=== PATIENT | female | born 1995 | race African-American/Black ===

== ENCOUNTER 2017-06-18 16:16 | Emergency (ER) | payer OTHER ==
[2017-06-18] MEDS ORDERED: METOCLOPRAMIDE HCL INJ/PF 10 MG/2 ML SDV IV ONE (16:36)
[2017-06-18] MEDS ORDERED: NORMAL SALINE 1000 ML 1,000 ML IV ONE ×2 (16:36→16:53)
--- NOTE | 2017-06-18 16:39 | ER Document Report ---
ED Medical Screen (RME) - General Chief Complaint: Nausea/Vomiting/Diarrhea Stated Complaint: VOMITING, STOMACH/BACK PAIN Time Seen by Provider: 06/18/17 16:34 Notes: 22-year-old female patient who is almost 13 weeks . Ate at [employer] yesterday. Later developed nausea vomiting diarrhea. No fever. I have greeted and performed a rapid initial assessment of this patient. A comprehensive ED assessment and evaluation of the patient, analysis of test results and completion of the medical decision making process will be conducted by additional ED providers. - Related Data Allergies/Adverse Reactions: No Known Allergies Allergy (Unverified 06/18/17 16:19) Physical Exam - Vital signs Vitals: Temp Pulse Resp BP Pulse Ox 97.7 F 113 H 18 97/57 L 96 06/18/17 16:26 06/18/17 16:26 06/18/17 16:26 06/18/17 16:26 06/18/17 16:26 Course - Vital Signs Vital signs: Temp Pulse Resp BP Pulse Ox 97.7 F 113 H 18 97/57 L 96 06/18/17 16:26 06/18/17 16:26 06/18/17 16:26 06/18/17 16:26 06/18/17 16:26
--- NOTE | 2017-06-18 16:58 | ER Document Report ---
ED GI/ - General Chief Complaint: Nausea/Vomiting/Diarrhea Stated Complaint: VOMITING, STOMACH/BACK PAIN Time Seen by Provider: 06/18/17 16:34 Mode of Arrival: Ambulatory Information source: Patient Notes: 22-year-old female that is 13 weeks had an episode of diarrhea after eating a [employer] yesterday and then had vomiting 5-6 times. She has been trying to put things in her mouth but it causes her to be nauseated and vomited since yesterday afternoon. When she has a forceful vomiting she urinates in her underwear. She feels like she is weak with some dizziness and headache. No vaginal bleeding or abdominal pain. - Related Data Allergies/Adverse Reactions: No Known Allergies Allergy (Unverified 06/18/17 16:19) Past Medical History - General Information source: Patient - Social History Smoking Status: Never Smoker Chew tobacco use (# tins/day): No Frequency of alcohol use: None Drug Abuse: None Lives with: Spouse/Significant other Family History: Reviewed & Not Pertinent Patient has suicidal ideation: No Patient has homicidal ideation: No - Medical History Notes: G1 Pulmonary Medical History: Reports: Hx Asthma Renal/ Medical History: Denies: Hx Peritoneal Dialysis Surgical Hx: Negative Review of Systems - Review of Systems Constitutional: No symptoms reported EENT: No symptoms reported Cardiovascular: No symptoms reported Respiratory: No symptoms reported Gastrointestinal: See HPI Genitourinary: No symptoms reported Female Genitourinary: No symptoms reported Musculoskeletal: No symptoms reported Skin: No symptoms reported Hematologic/Lymphatic: No symptoms reported Neurological/Psychological: No symptoms reported Physical Exam - Vital signs Vitals: Temp Pulse Resp BP Pulse Ox 97.7 F 113 H 18 97/57 L 96 06/18/17 16:26 06/18/17 16:26 06/18/17 16:26 06/18/17 16:26 06/18/17 16:26 Interpretation: Normal - General General appearance: Appears well, Alert In distress: None - HEENT Head: Normocephalic, Atraumatic Eyes: Normal Conjunctiva: Normal Pupils: PERRL Mucous membranes: Dry Pharynx: Normal Neck: Supple - Respiratory Respiratory status: No respiratory distress Chest status: Nontender Breath sounds: Normal Chest palpation: Normal - Cardiovascular Rhythm: Regular Heart sounds: Normal auscultation Murmur: No - Abdominal Inspection: Normal Distension: No distension Bowel sounds: Normal Tenderness: Nontender. No: Tender Organomegaly: No organomegaly - Back Back: Normal, Tender - lumbar back muscles - Extremities General upper extremity: Normal inspection, Nontender, Normal color, Normal ROM , Normal temperature General lower extremity: Normal inspection, Nontender, Normal color, Normal ROM , Normal temperature, Normal weight bearing. No: Leslie's sign - Neurological Neuro grossly intact: Yes Cognition: Normal Orientation: AAOx4 Torrey Coma Scale Eye Opening: Spontaneous Lauro Coma Scale Verbal: Oriented Lauro Coma Scale Motor: Obeys Commands Torrey Coma Scale Total: 15 Speech: Normal Motor strength normal: LUE, RUE, LLE, RLE Sensory: Normal - Psychological Associated symptoms: Normal affect, Normal mood - Skin Skin Temperature: Warm Skin Moisture: Dry Skin Color: Normal Skin irregularity: negative: Rash Course - Re-evaluation Re-evalutation: 06/18/17 18:02 heart tones are 145 and after 500 mL of normal saline she feels better already and wants to try sabine erica and marion crackers. She did have another episode of diarrhea while in the emergency department but no vomiting. 06/18/17 19:16 She ate some not so she feels a lot better she is drinking sabine erica I will send her home with Macrobid because the urine shows 2+ bacteria I did add a urine culture. - Vital Signs Vital signs: Temp Pulse Resp BP Pulse Ox 97.7 F 113 H 18 97/57 L 96 06/18/17 16:26 06/18/17 16:26 06/18/17 16:26 06/18/17 16:26 06/18/17 16:26 - Laboratory Result Diagrams: 06/18/17 16:58 06/18/17 16:58 Laboratory results interpreted by me: 06/18/17 06/18/17 06/18/17 16:58 16:58 17:20 Seg Neutrophils % 84.4 H Lymphocytes % 8.2 L Sodium 135.8 L BUN 6 L Creatinine 0.43 L Urine Ketones 80 H Urine Urobilinogen 2.0 H Discharge - Discharge Clinical Impression: 13 weeks gestation of , Vomiting and diarrhea Urinary tract infection Qualifiers: Urinary tract infection type: site unspecified Hematuria presence: without hematuria Qualified Code(s): N39.0 - Urinary tract infection, site not specified Condition: Good Disposition: ADMITTED INPATIENT Instructions: Diarrhea, Nonspecific ([facility]), Intravenous (IV) Fluids ([facility]), Vomiting ([facility]), Reglan ([facility]) Additional Instructions: Plenty of fluids Advance diet as tolerated Reglan can be taken 4 times a day for nausea Continue the antibiotic for the urinary tract infection Urine culture is pending Return to the emergency room for worsening of the symptoms See the [facility] this week for follow-up at [facility] Prescriptions: Nitrofurantoin/Nitrofuran Mac [Macrobid 100 mg Capsule] 100 mg PO BID #14 capsule
[2017-06-18 17:26] LABS: ABSOLUTE EOSINOPHILS # (AUTO) 0.2 10^3/uL (0.0-0.6); ABSOLUTE LYMPHOCYTES (AUTO) 0.8 10^3/uL (0.5-4.7); ABSOLUTE MONOCYTES (AUTO) 0.5 10^3/uL (0.1-1.4); ABSOLUTE NEUT (AUTO) 7.9 10^3/uL (1.7-8.2); BASOPHILS % (AUTO) 0.2 % (0-2); EOSINOPHILS % (AUTO) 2.1 % (0-6); HEMATOCRIT 39.3 % (36.0-47.0); HEMOGLOBIN 13.5 g/dL (12.0-15.5); LYMPHOCYTES % (AUTO) 8.2 % (13-45); MEAN CORPUSCULAR HEMOGLOBIN 29.6 pg (27.0-33.4); MEAN CORPUSCULAR HGB CONC 34.4 g/dL (32.0-36.0); MEAN CORPUSCULAR VOLUME 86 fl (80-97); MONOCYTES % (AUTO) 5.1 % (3-13); PLATELET COUNT 258 10^3/uL (150-450); RED BLOOD COUNT 4.57 10^6/uL (3.72-5.28); SEGMENTED NEUTROPHILS % (AUTO) 84.4 % (42-78); TOTAL CELLS COUNTED % (AUTO) 100 %; WHITE BLOOD COUNT 9.4 10^3/uL (4.0-10.5)
[2017-06-18 17:43] LABS: APPEARANCE,URINE SLIGHTLY-CLOUDY; BILIRUBIN,URINE NEGATIVE (NEGATIVE); COLOR,URINE YELLOW; GLUCOSE, URINE NEGATIVE (NEGATIVE); KETONES,URINE 80 mg/dL (NEGATIVE); LEUKOCYTE ESTERASE,URINE NEGATIVE (NEGATIVE); NITRITE,URINE NEGATIVE (NEGATIVE); PROTEIN,URINE NEGATIVE (NEGATIVE); URINE SPECIFIC GRAVITY 1.025
[2017-06-18 17:45] LABS: ALANINE AMINOTRANSFERASE 31 U/L (9-52); ALBUMIN 4.1 g/dL (3.5-5.0); ALKALINE PHOSPHATASE 58 U/L (38-126); ANION GAP 10 (5-19); ASPARTATE AMINO TRANSFERASE 19 U/L (14-36); BILIRUBIN,TOTAL 0.4 mg/dL (0.2-1.3); BLOOD UREA NITROGEN 6 mg/dL (7-20); CALCIUM 9.7 mg/dL (8.4-10.2); CARBON DIOXIDE 23 mmol/L (22-30); CHLORIDE 103 mmol/L (98-107); GLUCOSE 81 mg/dL (75-110); POTASSIUM 3.9 mmol/L (3.6-5.0); SODIUM 135.8 mmol/L (137-145); TOTAL PROTEIN 6.6 g/dL (6.3-8.2)
[2017-06-18] MEDS ORDERED: NITROFURANTOIN MONOHYD/M-CRYST 100 MG CAPSULE PO ONE (19:09)
[2017-06-18 19:32] VITALS: BP 127/65
== END 2017-06-18 20:10 | disposition home or self-care (01) ==
LOC: ER 16:16
DX: O21.9 Vomiting of pregnancy, unspecified (principal); O26.891 Other specified pregnancy related conditions, first trimester; R19.7 Diarrhea, unspecified; O23.41 Unspecified infection of urinary tract in pregnancy, first trimester; O99.511 Diseases of the respiratory system complicating pregnancy, first trimester; J45.909 Unspecified asthma, uncomplicated; Z3A.13 13 weeks gestation of pregnancy
CPT/HCPCS: 99284; 96361; 96374; 36415; 87086; 85025; 80053; 81001; J2765; J7030; J8499